=== PATIENT | female | born 1955 | race Caucasian/White ===

== ENCOUNTER 2024-05-07 06:22 | Day surgery (SDC) | payer MEDICARE, OTHER, SELFPAY | END 2024-05-07 10:28 | disposition home or self-care (01) | LOC: GI 06:22 | PROVIDERS: ATTENDING PHYSICIAN Internal Medicine; FAMILY PHYSICIAN Family Medicine | DX: Z12.11 Encounter for screening for malignant neoplasm of colon (principal); Z86.0100 Personal history of colon polyps, unspecified; K57.30 Diverticulosis of large intestine without perforation or abscess without bleeding; K64.8 Other hemorrhoids; R13.10 Dysphagia, unspecified; K31.89 Other diseases of stomach and duodenum; K29.80 Duodenitis without bleeding; K31.A0 Gastric intestinal metaplasia, unspecified; D12.2 Benign neoplasm of ascending colon; K63.5 Polyp of colon | CPT/HCPCS: 45385; 45380; 43239; 88305; 88312; 88342 ==

== ENCOUNTER → 2025-03-08 10:30 | Outpatient (REF) | payer MEDICARE, OTHER, SELFPAY | LOC: RAD 10:30 | PROVIDERS: ATTENDING PHYSICIAN Internal Medicine; FAMILY PHYSICIAN Family Medicine | DX: R10.32 Left lower quadrant pain (principal) | CPT/HCPCS: 74176 ==

== ENCOUNTER → 2025-03-26 10:16 | Outpatient (REF) | payer MEDICARE, OTHER, SELFPAY | LOC: MRI 3T 10:16 | PROVIDERS: ATTENDING PHYSICIAN Nurse Practitioner Family; FAMILY PHYSICIAN Family Medicine | DX: M54.2 Cervicalgia (principal); M54.50 Low back pain, unspecified | CPT/HCPCS: 72141; 72148 ==

== ENCOUNTER 2025-05-23 06:20 | Day surgery (SDC) | payer MEDICARE, OTHER, SELFPAY | END 2025-05-23 14:57 | disposition home or self-care (01) | LOC: GI 06:20 | PROVIDERS: ATTENDING PHYSICIAN Internal Medicine | DX: K22.2 Esophageal obstruction (principal); K29.70 Gastritis, unspecified, without bleeding; R13.10 Dysphagia, unspecified | CPT/HCPCS: 43249; 43239; 88305; 88342 ==